=== PATIENT | male | born 1995 | race Caucasian/White ===

== ENCOUNTER 2018-12-05 22:09 | Emergency (ER) | payer OTHER, SELFPAY ==
[2018-12-05 22:10] VITALS: BP 126/83; PULSE 109; RESP 18; TEMP 36.5; O2SAT 100; BMI 24.3
--- NOTE | 2018-12-05 23:00 | ED.DCSUM_ITS ---
- ER Visit Summary Date of Service: 12/05/18 Chief Complaint: [] Substance abuse History of Present Illness: The patient is a 23 M mom stated for the last several days he has been abusing. Approximately 3. It is reported that he has had about 25 pills in the last few days. Current severity is moderate. There are situational factors. He had a old friend who came into town and they were abusing together. This includes benzodiazepines. Mom does not think he is drank alcohol tonight. He denied heroin. He did tell her that he wanted to obtain some heroin so that he could end it. Has been in detox for heroin as an outpatient multiple times in the past. He got into a fight with his girlfriend beverley and reached out to his mother who brought him here. Physical Examination: [] Vital signs reviewed General: Well-nourished well-developed Head: Normocephalic atraumatic Eyes: Pupils equal round and reactive to light extraocular movements intact ENT: TMs clear no hemotympanum no trauma Neck: Nontender full range of motion Cardiovascular: Regular rate rhythm no murmurs normal S1-S2 Respiratory: No distress clear to auscultation bilaterally chest nontender Abdomen: Soft nontender nondistended normal bowel sounds no masses Back: Nontender no CVA tenderness Extremities: Nontender active range of motion ?4 extremities no trauma Skin: Normal color no trauma Neuro alert but sleepy. Oriented cranial nerves II through XII intact normal strength sensation reflexes Test Results: [] Emergency Department Course and Treatment: [] Patient given IV fluids. Lab work obtained. Patient felt better after treatment. We will can spoke with me. CBC shows a hemoglobin 17.2. Chemistries normal except chloride 108. Liver function tests show AST of 76. Toxicology shows positive amphetamines, MDMA, benzos, THC. Patient admitted to using up to 40 tablets of short-acting benzodiazepines per day for the last 2 weeks. He is also been using Adderall patient. Patient would like inpatient detox if he qualifies. His Cina scale is 0 however. He is showing no accident active withdrawal because he has been abusing. He was seen by crisis in the emergency department. He is not suicidal and has been cleared from their standpoint. This is more of a polysubstance abuse problem for the patient. Discussed with his mother. We will refer him to outpatient detox programs. If he goes through withdrawal symptoms he will return. He asked for a long-acting benzo for home to keep him out of withdrawal and unfortunately I cannot do this given the fact that he has been abusing Treatment Plan: [] Disposition: [] Impression: [] Polysubstance abuse This note was generated with [employer] dictation software. It may contain incorrect words, spelling, and punctuation that were not noted in review of the chart prior to signing ED Disposition - Plan for ED Patient: Chief Complaint: Substance Abuse Referrals: NOT,DEFINED [NON-STAFF] -
[2018-12-05 23:37] LABS: Absolute Lymphocyte Count 1.71 X10^3/ul (0.83-4.51); Absolute Neutrophil Count 3.4 X10^3/uL (2.0-7.7); Basophil# 0.01 X10^3/uL; Basophil% 0.2 % (0-1); Eosinophil# 0.24 X10^3/uL; Eosinophils% 4.1 % (0-5); Hematocrit 49.7 % (40-54); Hemoglobin 17.2 g/dl (13.0-16.5); Lymphocyte # 1.71 X10^3/ul (4.0); Lymphocyte % 29.2 % (19-41); Mean Corp Hgb Conc 34.6 g/gl (32-36); Mean Corpuscular Hgb 30.2 pg (27.0-32.0); Mean Corpuscular Volume 87.3 fL (80-94); Mean Platelet Vol. 9.2 fl (6.2-12.0); Monocyte% 8.5 % (0-10); Neutrophil # 3.39 X10^3/uL (2.7-7.7); Platelet Count 244 K/mm3 (150-450); RBC Distribution Width CV 13.3 % (11.6-14.6); RBC Distribution Width SD 42.5 fl (35.1-43.9); Red Blood Count 5.69 M/mm3 (4.6-6.2); White Blood Count 5.9 K/mm3 (4.4-11.0)
[2018-12-05 23:39] LABS: POSITIVE COUNT NO; POSITIVE DIFFERENTIAL NO; POSITIVE MORPHOLOGY NO
[2018-12-05 23:47] LABS: ALB/GLOB Ratio 1.2 RATIO (0.9-2.4); AST(SGOT) 24 U/L (15-37); Alanine Aminotransfer ALT/SGPT 76 U/L (16-61); Albumin, Serum 4.3 g/dL (3.2-5.0); Alkaline Phosphatase 117 U/L (45-117); Anion Gap 8 (5-15); BUN 11 mg/dL (7-18); BUN/Creat Ratio 12.2 RATIO (10-20); Chloride 108 mmol/L (98-107); EST Glomerular Filtration Rate 109 mL/min (>60); Est Glom Filt Rate - Afr Amer 132 mL/min (>60); Estimated Creatinine Clearance 126.56 ml/min; Globulin 3.6 g/dL (2.2-4.2); Glucose 90 mg/dL (74-106); Potassium 3.9 mmol/L (3.5-5.1); Protein, Total 7.9 g/dL (6.4-8.2); Sodium Level 142 mmol/L (136-145)
[2018-12-05] MEDS: 0.9% Normal Saline 1,000 ML 1000 ML IV (23:48)
[2018-12-06 00:05] LABS: Alcohol, Blood (Medical)-Serum < 3.0 mg/dL
[2018-12-06 00:16] VITALS: RESP 18
[2018-12-06 01:52] VITALS: BP 111/65; PULSE 82; RESP 17; O2SAT 98
[2018-12-06 02:28] LABS: Amphetamine Urine VISTA POSITIVE (<1000 ng/mL); Barbiturate Urine VISTA NEGATIVE (< 200 ng/mL); Benzodiazepine Urine VISTA POSITIVE (< 200 ng/mL); Cocaine Urine VISTA NEGATIVE (< 300 ng/mL); Ecstacy Urine VISTA POSITIVE (< 500 ng/mL); Methadone Urine VISTA NEGATIVE (< 300 ng/mL); PCP Urine VISTA NEGATIVE (< 25 ng/mL); THC Urine VISTA POSITIVE (< 50 ng/mL); Vista UDS pH Range 5
[2018-12-06 03:55] VITALS: RESP 16
[2018-12-06 04:00] VITALS: RESP 16
--- NOTE | 2018-12-06 04:51 | ED.DEP ---
ED Disposition - Plan for ED Patient: Disposition: Home or Assisted Living Chief Complaint: Substance Abuse Instructions: ED Drug Abuse General Referrals: EIGHTY,ONE [STAFF PHYSICIAN] -
[2018-12-06 05:16] VITALS: PULSE 86; RESP 16; O2SAT 98
== END 2018-12-06 06:05 | disposition home or self-care (01) ==
PROVIDERS: Emergency Provider Emergency Medicine
DX: F15.10 Other stimulant abuse, uncomplicated (principal); F13.10 Sedative, hypnotic or anxiolytic abuse, uncomplicated; F12.10 Cannabis abuse, uncomplicated; Z87.898 Personal history of other specified conditions; Z72.0 Tobacco use
CPT/HCPCS: 80053; 80307; 80320; 85025; 96360; 96361; 99285; A4216; G0480